=== PATIENT | male | born 2000 | race Caucasian/White ===

== ENCOUNTER 2023-12-16 22:59 | Emergency (ER) | payer OTHER, SELFPAY ==
[2023-12-16 23:10] VITALS: BP 153/92
[2023-12-16 23:11] VITALS: BMI 22.9
--- NOTE | 2023-12-16 23:46 | ED TECH ---
Pt is calm and in bed, urine sample was collected and one to one is in progress.
--- NOTE | 2023-12-16 23:51 | ED.GENMED ---
History of Present Illness
General
Chief Complaint: Crisis Evaluation
Source: patient
Exam Limitations: none
Time Seen by Provider: 12/16/23 23:01
Travel History
Have you had any contact with someone who has COVID-19?: No
Do you have any symptoms of coronavirus? Fever > 100 degrees, chills, cough, shortness of breath, sore throat, loss of taste or smell, muscle aches, or headache?: No
History of Present Illness
History of Present Illness:
This is a 23 year old male that is brought in by police. States that he called [id number] tonight as he was having thoughts of hurting others. States that this has been going on for a couple of years. States that he has a therapist and he [facility].
States that tonight he had some thoughts or hurting himself and other so that was why he called. States that he did what he was suppose to do. States that he had 4 beers tonight and went to bed. States that the next thing he knew the police were in
his room waking him up. States that he would never act on any of these thoughts. States that he doesn't know why he is here. States that he had a headache and some dizziness earlier. Denies any fever, chills, chest pain, SOB, abd pain, nausea,
vomiting, diarrhea, urinary burning. Denies any suicidal thoughts at this time.
Past History
Past History
ED Past Medical History: Psychiatric (Depression, Anxiety) and Other (PNA, Myocarditis)
ED Past Surgical History: None
Social History
Tobacco: Vaping (Former)
Alcohol: Occasional
Personal: Single
Living: with family
Review of Systems
Review of Systems
All Other Systems: ROS reviewed and negative except as documented in HPI and ROS
Constitutional: Reports no symptoms; Denies fever or chills
EENT: Reports no symptoms
Respiratory: Reports no symptoms; Denies cough or trouble breathing
Cardiac: Reports no symptoms; Denies chest pain
ABD/GI: Denies abdominal pain, nausea, vomiting or diarrhea
: Reports no symptoms; Denies dysuria, frequency or urgency
Musculoskeletal: Reports no symptoms
Skin: Reports no symptoms
Neurological: Reports dizzy and headache
Psychiatric: Reports suicidal (Thoughts of hurting self and others)
Phy Exam
General Physical Exam
General Presentation: well appearing and no apparent distress
General age: appears stated age
General Skin: warm and dry
General Habitus: normal
General Mental: alert
General Hydration: appears well hydrated
ENT Exam
ENT Exam: TM's normal, pharynx normal and neck supple
Eye Exam
Eye Exam: EOMI
Cardiovascular Exam
Cardiovascular Exam: regular rate/rhythm, no edema, no murmur and normal peripheral pulses
Pulmonary Exam
Pulmonary Exam: lungs clear, no respiratory distress, no rales, chest non tender, no crackles, no rhonchi, no wheezing and no cough
Gastrointestinal Exam
Gastrointestinal Exam: normal bowel sounds, non tender, soft, no organomegaly, no pulsatile mass and non distended
Musculoskeletal Exam
Musculoskeletal Exam: full ROM and no edema
Skin Exam
Skin Exam: normal color, warm/dry, no rash and no petechia
Psychiatric Exam
Psychiatric Exam: normal mood/affect
Course
Orders/Labs/Results
Orders:
Orders
12/16/23 23:54
Alcohol Urgent
COVID-19 Antigen Urgent
Source: Nasal Swab
Complete Blood Count/With Diff Urgent
Comprehensive Metabolic Panel Urgent
12/16/23 23:55
Fentanyl, Urine Urgent
Urine Drug Abuse Screen Urgent
Date Specimen was Collected: 12/16/23
Time Specimen was Collected: 23:54
Abnormal Lab Results
12/16/23 12/16/23
23:54 23:55
MCH 31.1 H pg
(27.0-31.0)
Absolute Lymphs (auto) 3.7 H 10^3/uL
(1.2-3.4)
Neutrophils % 39.3 L %
(42.2-75.2)
Sodium 147 H mmol/L
(135-145)
Chloride 111 H mmol/L
(98-107)
Carbon Dioxide 19 L mmol/L
(22-30)
Glucose 123 H mg/dl
(70-99)
AST 64 H U/L
(17-59)
ALT 87 H U/L
(0-50)
Albumin 5.4 H g/dl
(3.5-5.0)
Ur Amphetamines Screen Positive H
(Negative)
12/16/23 23:54
12/16/23 23:54
Sodium slightly elevated. Chloride elevated. Carbon dioxide low, Glucose nonfasting. AST/ALT elevation. Urine drug positive for amphetamine. Negative for Fentanyl. Negative for COVID, Alcohol level is 377
Vital Signs
Initial and Last Documented VS:
Initial Vital Signs
Temp Pulse BP Pulse Ox
98.4 F 112 153/92 94
12/16/23 23:10 12/16/23 23:10 12/16/23 23:10 12/16/23 23:10
Last Documented Vital Signs
Temp Pulse BP Pulse Ox
98.4 F 112 153/92 95
12/16/23 23:10 12/16/23 23:10 12/16/23 23:10 12/16/23 23:25
MDM/Problems Addressed
Differential Diagnosis Includes:
Suicidal and Homicidal thoughts. Alcohol intoxication
MDM/Problems Addressed:
This is a 23 year old male that is brought in by police. States that for a couple of years he has had thought of hurting others and himself. States that he sees a Therapist and goes to [facility]. Tonight he did what he was told to do he called [id number] and
talked with them. States that he drank 4 beers and went to bed. The next thing he knew was that the police were in his house and they woke him up and brought him here.
Will check labs. Urine drug. Spoke with Crisis and at this time patient is a 302 as this was upheld by a Delegate. Will await alcohol level and if low enough will have tele psych see patient.
Crisis came over and said that The psychiatrist spoke with mom and the have decided to let the patient go home. Told that he says this happens when he drinks and mom is comfortable taking the patient home. Will discharge
Chronic conditions affecting care: Psychiatric illness
Acute Exacerbation and/or Progression of Chronic Illness: Psychiatric illness
*Pulse Oximetry
Patient hypoxic: no
*EKG
Interpreted by ED Provider?: NA
Rate: EKG- N/A
*[employer] Interpretation
Rate: [employer]- N/A
*Critical Care Note
Total Time (30-74mins, 75-104mins- exclusive of procedures): Not Applicable
ED Attending Note
-
Portions of this chart may have been created with voice recognition software.� Occasional wrong word or��sound alike� substitutions may have occurred due to the inherent limitations of voice recognition software.
Discharge Plan
Departure
Patient Disposition: Home (Routine Discharge)
Date of Disposition: 12/17/23
Time of Disposition: 00:47
Patient with high blood pressure during this ER visit?: Yes
Condition: Good
Covid-19: Negative COVID-19
Discharge Problem:
Alcohol intoxication
Instructions: Alcohol Use Disorder (DC), BLOOD PRESSURE
Prescriptions:
No Action
No Current Medications
0
Referrals:
UNKNOWN - PT NOT,INTERVIEWE [Family Provider] -
Activity Restrictions/Additional Instructions:
As discussed, your Alcohol leve is very teresa at 377. You are considered intoxicated. Your Liver enzymes are elevated due to your alcohol use. Please stop or cut down on the alcohol intake. This will only cause your thoughts of hurting yourself and
others to get worse. Please increase your water intake to 8-8oz glasses daily. Follow up with your Psychiatrist and [facility] as directed. IF YOU HAVE ANY OTHER CONCERNS PLEASE RETURN TO THE EMERGENCY ROOM.
Interventions
Interventions:
*Risk Screen - Suicide Last Done: 12/16/23 23:25
*General Assessment Last Done: 12/16/23 23:17
ED- Fall Risk Assessment Last Done: 12/16/23 23:25
*ED COVID-19 Vaccine History Last Done: 12/16/23 23:25
ED-Psychological Assessment Last Done: 12/16/23 23:25
[2023-12-17 00:07] LABS: % Basophils 1.1 % (0-2); % Eosinophils 4.6 % (0-6); % Immature Granulocytes 0.5 % (0-0.5); % Lymphocytes 47.3 % (20.5-51.1); % Monocytes 7.2 % (1.7-9.3); % Neutrophils 39.3 % (42.2-75.2); Absolute Basophils 0.1 10^3/uL (0-0.2); Absolute Eosinophils 0.4 10^3/uL (0-0.7); Absolute Lymphocytes 3.7 10^3/uL (1.2-3.4); Absolute Monocytes 0.6 10^3/uL (0.1-0.6); Absolute Neutrophils 3.1 10^3/uL (1.4-6.5); Mean Corp Hgb Conc. 36.2 g/dL (33.0-37.0); Mean Corpuscular Hgb 31.1 pg (27.0-31.0); Mean Corpuscular Volume 86.1 fL (80.0-94.0); Mean Platelet Volume 8.7 fL (7.4-10.4); Nucleated Red Blood Cells % 0 % (-); Platelet Count 254 10^3/uL (130-400); Red Blood Cell Count 5.46 10^6/uL (4.70-6.10); Red Cell Dist. Width 12.3 % (11.5-14.5); White Blood Cell Count 7.9 10^3/uL (4.8-10.8)
--- NOTE | 2023-12-17 00:11 | PTCARENOTE ---
Pt is getting agitated and restless due to the time and pt does not want to be here. This PCT calmed the Pt down and was able to get the pt back to bed. one to one is in progress.
[2023-12-17 00:26] LABS: ALT (SGPT) 87 U/L (0-50); AST (SGOT) 64 U/L (17-59); Albumin 5.4 g/dl (3.5-5.0); Alkaline Phosphatase 89 U/L (38-126); Blood Urea Nitrogen 13 mg/dl (9-20); Calcium 9.3 mg/dl (8.4-10.2); Carbon Dioxide 19 mmol/L (22-30); Chloride 111 mmol/L (98-107); Estimated Creatinine Clearance > 125 ml/min; Glucose 123 mg/dl (70-99); Potassium 3.9 mmol/L (3.5-5.1); Sodium 147 mmol/L (135-145); Total Bilirubin 0.3 mg/dl (0.2-1.3); eGFR > 60.00
[2023-12-17 00:26] LABS: Amphetamines Positive (Negative); Barbiturates Negative (Negative); Benzodiazepines Negative (Negative); Buprenorphine Negative (Negative); Cocaine Negative (Negative); Marijuana Negative (Negative); Methadone Negative (Negative); Methamphetamines Negative (Negative); Opiates Negative (Negative); Phencyclidine Negative (Negative); Tricyclic Antidepressants Negative (Negative)
[2023-12-17 00:32] LABS: COVID-19 Antigen Negative (Negative)
[2023-12-17 00:37] LABS: Alcohol 377 mg/dl
[2023-12-17 00:39] LABS: Fentanyl, Urine Negative (Negative)
--- NOTE | 2023-12-17 00:41 | PTCARENOTE ---
Pt is getting dressed back up with his clothes. Crisis stated that Pt can change and is waiting for a ride to be discharged. one to one forms have been given to the nurse by this PCT.
== END 2023-12-17 01:10 | disposition home or self-care (01) ==
LOC: EMR 22:59
PROVIDERS: Clinical Nurse Specialist Family Health; EMERGENCY PHYSICIAN Student in an Organized Health Care Education/Training Program
DX: F10.129 Alcohol abuse with intoxication, unspecified (principal); F41.8 Other specified anxiety disorders; I51.4 Myocarditis, unspecified; F17.290 Nicotine dependence, other tobacco product, uncomplicated
CPT/HCPCS: 99283; 80053; 80306; 80307; 82077; 85025; 87811